=== PATIENT | male | born 1980 | race Caucasian/White ===

== ENCOUNTER 2021-09-22 19:06 | Emergency (ER) | payer MEDICAID ==
[~2021-09-22] VITALS: Ht 175.3 cm; Wt 74.8 kg
[2021-09-22 19:10] VITALS: BP_SYST 140
[2021-09-22 20:59] LABS: CALCIUM 8.6 mg/dL (8.4-11.0); CREATININE 1.02 mg/dL (0.55-1.30); POTASSIUM 4.3 mmol/L (3.5-5.1)
[2021-09-22 21:04] LABS: ALBUMIN 3.3 g/dL (3.4-4.8); TOTAL BILIRUBIN 0.8 mg/dL (0.0-1.0)
[2021-09-22 21:42] LABS: BASOPHILS # (AUTO) 0.1 K/uL (0.0-0.2); BASOPHILS % (AUTO) 0.8 % (0.0-2.0); EOSINOPHILS # (AUTO) 0.1 K/uL (0.0-0.4); EOSINOPHILS % (AUTO) 0.4 % (0.0-4.0); HEMOGLOBIN 13.4 g/dL (14.0-18.0); LYMPHOCYTES # (AUTO) 1.3 K/uL (1.0-5.5); LYMPHOCYTES % (AUTO) 7.8 % (20.5-51.5); MEAN CORPUSCULAR HEMOGLOBIN 30 pg (27-31); MEAN CORPUSCULAR HGB CONC 34 % (32-36); MEAN CORPUSCULAR VOLUME 90 fL (79.0-98.0); MONOCYTES % (AUTO) 12.5 % (1.7-9.3); NEUTROPHILS # (AUTO) 12.8 K/uL (1.8-7.7); NEUTROPHILS % (AUTO) 78.5 % (40.0-70.0); PLATELET COUNT (AUTO) 479 K/uL (130-430); RED BLOOD CELL COUNT(AUTO) 4.43 MIL/uL (4.2-6.2); RED CELL DISTRIBUTION WIDTH 12.9 % (9.0-15.0); WHITE BLOOD COUNT (AUTO) 16.3 K/uL (4.8-10.8)
[2021-09-22 22:12] VITALS: BP_SYST 113
[2021-09-22] MEDS ORDERED: CLIN-142 PO (22:13)
[2021-09-22] MEDS ORDERED: CLINDAMYCIN HCL 150 MG CAPSULE PO ONE (22:15)
== END 2021-09-22 22:32 | disposition home or self-care (01) ==
LOC: SED 19:06
DX: L03.115 Cellulitis of right lower limb (principal); Z79.899 Other long term (current) drug therapy
CPT/HCPCS: 36415; 80053; 85025; 93971; 99284

== ENCOUNTER 2021-09-30 16:39 | Emergency (ER) | payer MEDICAID ==
[~2021-09-30] VITALS: Ht 175.3 cm; Wt 74.8 kg
[~2021-09-30 16:39] MED LIST: CLIN-142 PO
[2021-09-30 16:40] VITALS: BP_SYST 131
--- NOTE | 2021-09-30 16:40 | NUR ---
Patient triaged and placed in waiting room. VSS and patient appears in no acute distress at this time. Accompanied by SELF, awaiting available bed, and MD notified of need for MSE.
--- NOTE | 2021-09-30 16:55 | NUR ---
PT STATES HE WAS GIVEN CIPRO FOR RIGHT LOWER EXT CELLULITIS, OUT OF ANTIBIOTICS AT THIS TIME. REQUESTING MORE ANTIBIOTICS.
--- NOTE | 2021-09-30 17:00 | NUR ---
SEEN AND EVALUATED BY DR HAINES IN TRIAGE ROOM.
[2021-09-30] MEDS ORDERED: CEPH-548 PO (17:10)
[2021-09-30] MEDS ORDERED: SULF1TAB48 PO (17:10)
--- NOTE | 2021-09-30 17:15 | NUR ---
Patient given written and verbal discharge instructions and verbalizes understanding. ER MD discussed with patient the results and treatment provided. Patient in stable condition. ID arm band removed. Rx of CEPHALEXIN, BACTRIM given. Patient educated on pain management and to follow up with PMD. Pain Scale 0/10. Opportunity for questions provided and answered. Medication side effect fact sheet provided.
== END 2021-09-30 18:00 | disposition home or self-care (01) ==
LOC: SED 16:39
DX: L03.115 Cellulitis of right lower limb (principal); Z79.899 Other long term (current) drug therapy
CPT/HCPCS: 99283